=== PATIENT | female | born 2000 | race Two or more races ===

== ENCOUNTER 2020-08-23 18:59 | Emergency (ER) | payer OTHER ==
[~2020-08-23] VITALS: Ht 165.1 cm; Wt 53.5 kg
[2020-08-23 19:45] VITALS: BP 105/66
[2020-08-23] MEDS ORDERED: Methocarbamol 750mg tab ORAL ONE (20:00)
[2020-08-23] MEDS ORDERED: Acetaminophen 500mg (ES) tab ORAL ONE (20:00)
[2020-08-23] MEDS ORDERED: TYLENOL EXTRA500 MG ORAL (20:27)
[2020-08-23] MEDS ORDERED: LIDODERM700 M1 TOPIC (20:27)
[2020-08-23] MEDS ORDERED: ROBAXIN-750750 MG PO (20:27)
[2020-08-23 20:45] VITALS: BP 107/70
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
== END 2020-08-23 20:45 | disposition home or self-care (01) ==
LOC: EMR 20:22
DX: M54.2 Cervicalgia (principal); M54.9 Dorsalgia, unspecified; V43.52XA Car driver injured in collision with other type car in traffic accident, initial encounter; Y92.410 Unspecified street and highway as the place of occurrence of the external cause; Z88.6 Allergy status to analgesic agent; M25.562 Pain in left knee; M25.512 Pain in left shoulder; M25.511 Pain in right shoulder
CPT/HCPCS: 99282